=== PATIENT | male | born 1955 | race Caucasian/White ===

== ENCOUNTER 2016-09-29 08:43 | Emergency (ER) | payer OTHER ==
[2016-09-29 09:06] VITALS: BP 140/65
[2016-09-29] MEDS ORDERED: OXYCODONE-ACETAMINOPHEN 5-325 MG TABLET PO ONE (09:27)
[2016-09-29] MEDS ORDERED: PROMETHAZINE HCL 25 MG TABLET PO ONE (09:27)
--- NOTE | 2016-09-29 09:30 | ER Document Report ---
ED General - General Chief Complaint: Possible Kidney Stone Stated Complaint: FLANK PAIN Mode of Arrival: Ambulatory Information source: Patient Notes: 61-year-old male history of 3 previous kidney stones was diagnosed with a kidney stone in 2 weeks prior by x-ray at an urgent care presents with complaints of continued right flank pain associated with nausea. Patient denies any fevers or chills patient denies any vomiting. Patient denies any burning on urination, he has been on the proximal and Flomax with no improvement of symptoms Patient does not have a urologist here TRAVEL OUTSIDE OF THE [place] IN LAST 30 DAYS: No - HPI Onset: Other - 2 week duration Onset/Duration: Intermittent Quality of pain: Dull Severity: Mild Pain Level: 1 Associated symptoms: Nausea Exacerbated by: Denies Relieved by: Denies Similar symptoms previously: Yes Recently seen / treated by doctor: Yes Past Medical History - Social History Smoking Status: Never Smoker Cigarette use (# per day): No Chew tobacco use (# tins/day): No Smoking Education Provided: No Family History: Reviewed & Not Pertinent Patient has suicidal ideation: No Patient has homicidal ideation: No Renal/ Medical History: Denies: Hx Peritoneal Dialysis Review of Systems - Review of Systems Notes: REVIEW OF SYSTEMS: CONSTITUTIONAL : Denies fever, chills, or sweats. Denies recent illness. EENT: Denies eye, ear, throat, or mouth pain or symptoms. Denies nasal or sinus congestion or discharge. Denies throat, tongue, or mouth swelling or difficulty swallowing. CARDIOVASCULAR: Denies chest pain. Denies palpitations or racing or irregular heart beat. Denies ankle edema. RESPIRATORY: Denies cough, cold, or chest congestion. Denies shortness of breath, difficulty breathing, or wheezing. GASTROINTESTINAL: Admits to nausea right flank pain GENITOURINARY: Denies difficulty urinating, painful urination, burning, frequency, blood in urine, or discharge. MUSCULOSKELETAL: Denies back or neck pain or stiffness. Denies joint pain or swelling. SKIN: Denies rash, lesions or sores. HEMATOLOGIC : Denies easy bruising or bleeding. LYMPHATIC: Denies swollen, enlarged glands. NEUROLOGICAL: Denies confusion or altered mental status. Denies passing out or loss of consciousness. Denies dizziness or lightheadedness. Denies headache. Denies weakness or paralysis or loss of use of either side. Denies problems with gait or speech. Denies sensory loss, numbness, or tingling. Denies seizures. PSYCHIATRIC: Denies anxiety or stress. Denies depression, suicidal ideation, or homicidal ideation. ALL OTHER SYSTEMS REVIEWED AND NEGATIVE. Dictation was performed using [employer] voice recognition software PHYSICAL EXAMINATION: GENERAL: Well-appearing, well-nourished and in no acute distress. HEAD: Atraumatic, normocephalic. EYES: Pupils equal round and reactive to light, extraocular movements intact, sclera anicteric, conjunctiva are normal. ENT: Nares patent, oropharynx clear without exudates. Moist mucous membranes. NECK: Normal range of motion, supple without lymphadenopathy LUNGS: Breath sounds clear to auscultation bilaterally and equal. No wheezes rales or rhonchi. HEART: Regular rate and rhythm without murmurs ABDOMEN: Soft, nontender, nondistended abdomen. No guarding, no rebound. No masses appreciated. Musculoskeletal: Normal range of motion, no pitting or edema. No cyanosis. NEUROLOGICAL: Cranial nerves grossly intact. Normal speech, normal gait. Normal sensory, motor exams PSYCH: Normal mood, normal affect. SKIN: Warm, Dry, normal turgor, no rashes or lesions noted. Physical Exam - Vital signs Vitals: Temp Pulse Resp BP Pulse Ox 97.4 F 82 16 140/65 H 95 09/29/16 09:05 09/29/16 09:05 09/29/16 09:05 09/29/16 09:05 09/29/16 09:05 Course - Re-evaluation Re-evalutation: 09/29/16 09:29 Given history of kidney stone urinalysis to rule out infectious process and a CT has been ordered. Otherwise patient looks well will be given by mouth medication 09/29/16 10:42 CT notes a 5 mm stone in the left lower renal, I believe this is causing the patient's achy pain as his urinalysis is clear, patient will be given urology follow-up for reevaluation. He'll be discharged home on pain control nausea medication and follow-up. After performing a Medical Screening Examination, I estimate there is LOW risk for ACUTE APPENDICITIS, BOWEL OBSTRUCTION, ACUTE CHOLECYSTITIS, PERFORATED DIVERTICULITIS, INCARCERATED HERNIA, PANCREATITIS, or PERFORATED ULCER, thus I consider the discharge disposition reasonable. Also, there is no evidence or peritonitis, sepsis, or toxicity. I have reevaluated this patient multiple times and no significant life threatening changes are noted. The patient and I have discussed the diagnosis and risks, and we agree with discharging home with close follow-up with the understanding that symptoms and presentations can change. We also discussed returning to the Emergency Department immediately if new or worsening symptoms occur. We have discussed the symptoms which are most concerning (e.g., bloody stool, fever, changing or worsening pain, intractable vomiting - standard verbal up date) that necessitate immediate return. - Vital Signs Vital signs: Temp Pulse Resp BP Pulse Ox 97.4 F 82 16 140/65 H 95 09/29/16 09:05 09/29/16 09:05 09/29/16 09:05 09/29/16 09:05 09/29/16 09:05 - Laboratory Laboratory results interpreted by me: 09/29/16 09:31 Urine Glucose (UA) >=500 H - Diagnostic Test Radiology reviewed: Image reviewed, Reports reviewed - 5 mm stone Discharge - Discharge Clinical Impression: Kidney stone on left side Nausea & vomiting Qualifiers: Vomiting type: unspecified Vomiting Intractability: non-intractable Qualified Code(s): R11.2 - Nausea with vomiting, unspecified Condition: Stable Disposition: HOME, SELF-CARE Instructions: Kidney Stone ([facility]) Prescriptions: Oxycodone HCl/Acetaminophen [Percocet 5-325 mg Tablet] 1 - 2 tab PO Q4H PRN #25 tablet PRN Reason: Promethazine HCl [Phenergan 25 mg Tablet] 1 - 2 tab PO Q6H PRN #15 tablet PRN Reason: Tamsulosin HCl [Flomax 0.4 mg Cap.sr] 0.4 mg PO DAILY #20 cap.sr.24h Referrals: MARY LEMA MD [ACTIVE STAFF] - Follow up tomorrow
[2016-09-29 10:14] LABS: APPEARANCE,URINE CLEAR; BILIRUBIN,URINE NEGATIVE (NEGATIVE); GLUCOSE, URINE >=500 mg/dL (NEGATIVE); KETONES,URINE NEGATIVE (NEGATIVE); LEUKOCYTE ESTERASE,URINE NEGATIVE (NEGATIVE); NITRITE,URINE NEGATIVE (NEGATIVE); PROTEIN,URINE NEGATIVE (NEGATIVE); URINE SPECIFIC GRAVITY 1.002; UROBILINOGEN,URINE NEGATIVE mg/dL (<2.0)
== END 2016-09-29 10:50 | disposition home or self-care (01) ==
LOC: ER 08:43
DX: N20.0 Calculus of kidney (principal); R11.2 Nausea with vomiting, unspecified; R10.9 Unspecified abdominal pain; Z87.442 Personal history of urinary calculi
CPT/HCPCS: 76380; 81001; 99284

== ENCOUNTER 2016-10-02 11:06 | Emergency (ER) | payer OTHER ==
--- NOTE | 2016-10-02 12:19 | ER Document Report ---
ED GI/ - General Time seen by provider: 12:08 Mode of Arrival: Ambulatory Information source: Patient, Relative TRAVEL OUTSIDE OF THE [place] IN LAST 30 DAYS: No - HPI Patient complains to provider of: Abdominal pain Onset: Other - see history of present illness note Similar symptoms previously: Yes Recently seen / treated by doctor: Yes - General Chief Complaint: Possible Kidney Stone Stated Complaint: LEFT SIDE FLANK PAIN Notes: Patient is a 61-year-old male presenting emergency department for a kidney stent. Patient states he has an upset stomach from pain medications. patient has tried taking nausea medications with his pain meds without any relief. Patient states that he cannot get an appointment with his follow-up urologist until the . Patient was diagnosed with a 5 mm stone has not passed yet. Patient has no known allergies. (LINDSEY EMANUEL) - Related Data Allergies/Adverse Reactions: No Known Allergies Allergy (Unverified 10/02/16 11:11) Past Medical History - General Information source: Patient - Social History Smoking Status: Unknown if Ever Smoked Family History: None Patient has suicidal ideation: No Patient has homicidal ideation: No Renal/ Medical History: Reports: Hx Kidney Stones Review of Systems - Review of Systems Constitutional: No symptoms reported EENT: No symptoms reported Cardiovascular: No symptoms reported Respiratory: No symptoms reported Gastrointestinal: See HPI, Abdominal pain, Nausea Genitourinary: See HPI Male Genitourinary: No symptoms reported Musculoskeletal: No symptoms reported Skin: No symptoms reported Hematologic/Lymphatic: No symptoms reported Neurological/Psychological: No symptoms reported -: Yes All other systems reviewed and negative Physical Exam - Vital signs Interpretation: Normal - General General appearance: Appears well, Alert In distress: Mild - HEENT Head: Normocephalic, Atraumatic Eyes: Normal Pupils: PERRL Mucous membranes: Moist - Respiratory Respiratory status: No respiratory distress - Cardiovascular Rhythm: Regular - Abdominal Inspection: Normal - Back Back: Normal - Extremities General upper extremity: Normal inspection, Normal ROM, Normal strength General lower extremity: Normal inspection, Normal ROM, Normal strength - Neurological Neuro grossly intact: Yes Cognition: Normal Orientation: AAOx4 [place] Coma Scale Eye Opening: Spontaneous [place] Coma Scale Verbal: Oriented [place] Coma Scale Motor: Obeys Commands [place] Coma Scale Total: 15 Speech: Normal - Psychological Associated symptoms: Normal affect, Normal mood - Skin Skin Temperature: Warm Skin Moisture: Dry Course - Re-evaluation Re-evalutation: 10/02/16 12:22 presents emergency, chief complaint diagnosed a kidney stone 4 days ago was 5 mm no I0 noninfected. He says he can't tolerate the pain medication cousins upsetting his stomach and causing pain and burning despite the Phenergan. He has a follow-up appointment with [facility] urology but it's not until the 15th any can't wait until then. No fevers chills vomiting abdomen is soft no tenderness guarding rebound rigidity. I called over to [facility] urology and they said he could come over be evaluated right now. His can be discharged go directly to their office and discussed reasons for ED return sooner (SUMAYA MATTSON) - Vital Signs Vital signs: Temp Pulse Resp BP Pulse Ox 98 F 70 14 127/87 H 98 10/02/16 13:03 10/02/16 13:03 10/02/16 13:03 10/02/16 13:03 10/02/16 13:03 Discharge - Discharge Clinical Impression: kidney stone Condition: Stable Disposition: HOME, SELF-CARE Additional Instructions: Kidney Stone You are passing or have passed a kidney stone. These stones are usually due to increased calcium or uric acid concentrations in your urine. Stones within the kidney itself are not painful. The pain occurs as the stone leaves the kidney to pass down the long tube, called the ureter, leading to the bladder. If the stone is small, it will usually pass by itself. Most patients can pass the stone at home. You will usually receive medications for pain, nausea or vomiting, and sometimes a medication to assist in passing the kidney stone. However, if the pain is very severe or if vomiting prevents you from taking oral pain medications, you may need to return for further treatment. Drink three or four quarts of fluids per day. You will be given pain medication (if needed) and urine strainers. Strain all your urine to see if the stone passes. If your doctor has asked you to bring the stone in for analysis, return with the stone once it has passed. Return if pain or vomiting become severe, if you develop a high fever, if you are unable to pass your urine, or if other unusual symptoms occur. Go directly to [facility] urology now they will see you. Return for increasing worsening or new symptoms Scribe Attestation: 10/02/16 12:22 I personally performed the services described in the documentation reviewed the documentation recorded by my scribe in my presence and it accurately and completely records my words and actions (SUMAYA MATTSON) Scribe Documentation - Scribe Written by Scriblandon:: Lindsey Emanuel 10/02/16 12:47 acting as scribe for :: Cj
[2016-10-02 13:07] VITALS: BP 127/87
== END 2016-10-02 12:45 | disposition home or self-care (01) ==
LOC: ER 11:06
DX: N20.0 Calculus of kidney (principal); R10.9 Unspecified abdominal pain
CPT/HCPCS: 99283

== ENCOUNTER 2018-05-27 06:51 | Day surgery (SDC) | payer OTHER ==
[~2018-05-27 06:51] MED LIST: KETOROLAC TROMETHAMINE 0.45% 4 DROP/0.4 ML DROPERETTE OS PRN
[2018-05-27] MEDS: CYCLOPENTOLATE 0.2%/PHENYLEPHRINE 1% OPH SOLN 2 ML OS PRN ×3 (07:09→07:36)
[2018-05-27] MEDS: TETRACAINE HCL 0.5% OPH SOLN 4 ML OS PRN ×2 (07:09→07:55)
[2018-05-27] MEDS: BESIFLOXACIN HCL 0.6% OPH SUSP 5 ML BOTTLE OS PRN ×4 (07:09→08:22)
[2018-05-27] MEDS: TROPICAMIDE 1% OPH SOLN 3 ML OS PRN ×3 (07:09→07:36)
[2018-05-27] MEDS ORDERED: LIDOCAINE 1% INJ-PF (10 MG/ML) 30 ML SDV ONE (07:13)
[2018-05-27] MEDS ORDERED: MIDAZOLAM 2 MG/2 ML INJ ONE (07:48)
[2018-05-27] MEDS: CHONDR SU A NA/HYALUR INTRAOC KIT (SURGICARE) ONE ×2 (08:10)
[2018-05-27] MEDS: EPINEPHRINE INJ/PF 1 MG/1 ML AMPULE ONE ×2 (08:10)
[2018-05-27] MEDS ORDERED: FENTANYL CITRATE INJ/PF 100 MCG/2 ML AMPUL ONE (08:11)
--- NOTE | 2018-05-28 23:38 | [facility] DISCHARGE SUMMARY E ---
[facility] Discharge Summary NAME: JM BHATIA AGE: 63Y ADMITTED: 05/27/2018 DISCHARGED: 05/27/2018 A 63-year-old patient who underwent cataract extraction of the left eye. DIAGNOSIS: Cataract left eye. He underwent surgery because he was having trouble seeing road signs, with increased glare from headlights, making it difficult to drive. He should be on a regular diet. No bending at the waist and no heavy lifting. He should use his Besivance, Prolensa, and Durezol at 3:00 p.m. and 8:00 p.m. and see me for a 1-day postop tomorrow. DICTATING PHYSICIAN: DANNY PHELPS M.D. [id number] PHY#: [id number] ID: [id number] JOB#: [id number] ACCT: [id number] cc:DANNY PHELPS M.D. >
--- NOTE | 2018-05-28 23:38 | [facility] OPERATIVE REPORT E ---
[facility] Operative Report NAME: JM BHATIA AGE: 63Y DATE OF SURGERY: 05/27/2018 ROOM: PREOPERATIVE DIAGNOSIS: CATARACT, LEFT EYE. POSTOPERATIVE DIAGNOSIS: CATARACT, LEFT EYE. OPERATION: Cataract extraction with insertion of an IOL of the left eye. SURGEON: DANNY PHELPS M.D. ANESTHESIA: Topical. PROCEDURE: After obtaining appropriate consent, the patient's left eye was prepped and draped in sterile fashion as well as the surgeon in a sterile manner and cataract surgery was started. First a paracentesis blade was used to make a side-port incision. Viscoelastic was used to inflate the anterior chamber. Next a 2.4 mm incision was made with a 2.4 mm blade, clear corneal temporally. A continuous capsulorrhexis was made using a cystotome and Utrata forceps. Following this hydrodissection was carried out to make the lens fully loose and mobile and it was rotated 90 degrees. Following this, a rfadtl-xqk-yvzgisu technique was used to phacoemulsify the lens with a CDE of 5.27. The remaining cortex was removed with irrigation/aspiration. Provisc was instilled into the capsular bag to inflate the bag. A SN60WF, 25.0 diopter lens was placed. The remaining viscoelastic material was removed with irrigation/aspiration. Following this, the incision was found to be watertight. Besivance was instilled into the eye and a protective shield was placed over the eye. The patient returned to the postoperative recovery in stable condition. DICTATING PHYSICIAN: DANNY PHELPS M.D. [id number] PHY#: [id number] ID: [id number] JOB#: [id number] ACCT: [id number] cc:DANNY PHELPS M.D. >
== END 2018-05-27 09:12 | disposition home or self-care (01) ==
LOC: SC 06:51
PROVIDERS: ATTEND Internal Medicine
DX: H25.812 Combined forms of age-related cataract, left eye (principal); H25.811 Combined forms of age-related cataract, right eye; E11.36 Type 2 diabetes mellitus with diabetic cataract; I11.9 Hypertensive heart disease without heart failure; I48.91 Unspecified atrial fibrillation; E11.3291 Type 2 diabetes mellitus with mild nonproliferative diabetic retinopathy without macular edema, right eye; Z79.4 Long term (current) use of insulin
CPT/HCPCS: 82962; 66982; V2632; J2250; J3490 ×3; J0171; J3010; 142

== ENCOUNTER 2018-06-24 08:27 | Day surgery (SDC) | payer OTHER ==
[~2018-06-24 08:27] MED LIST changes: +KETOROLAC TROMETHAMINE 0.45% 4 DROP/0.4 ML DROPERETTE OD PRN; -KETOROLAC TROMETHAMINE 0.45% 4 DROP/0.4 ML DROPERETTE OS PRN; +MIDAZOLAM 2 MG/2 ML INJ ONE
[2018-06-24] MEDS: TROPICAMIDE 1% OPH SOLN 3 ML OD PRN ×3 (09:35→09:55)
[2018-06-24] MEDS: TETRACAINE HCL 0.5% OPH SOLN 4 ML OD PRN ×3 (09:35→10:07)
[2018-06-24] MEDS: CYCLOPENTOLATE 0.2%/PHENYLEPHRINE 1% OPH SOLN 2 ML OD PRN ×3 (09:35→09:55)
[2018-06-24] MEDS: BESIFLOXACIN HCL 0.6% OPH SUSP 5 ML BOTTLE OD PRN ×4 (09:36→10:16)
[2018-06-24] MEDS: LIDOCAINE 1% INJ-PF (10 MG/ML) 30 ML SDV ONE ×2 (10:12→10:16)
[2018-06-24] MEDS: EPINEPHRINE INJ/PF 1 MG/1 ML AMPULE ONE ×2 (10:12→10:16)
[2018-06-24] MEDS: CHONDR SU A NA/HYALUR INTRAOC KIT (SURGICARE) ONE ×2 (10:13→10:16)
[2018-06-24] MEDS ORDERED: MIDAZOLAM 2 MG/2 ML INJ ONE (10:32)
--- NOTE | 2018-06-24 21:58 | [facility] OPERATIVE REPORT E ---
[facility] Operative Report NAME: JM BHATIA AGE: 63Y DATE OF SURGERY: 06/24/2018 ROOM: PREOPERATIVE DIAGNOSIS: CATARACT, RIGHT EYE. POSTOPERATIVE DIAGNOSIS: CATARACT, RIGHT EYE. OPERATION: Cataract extraction with insertion of an IOL of the right eye. SURGEON: DANNY PHELPS M.D. ANESTHESIA: Topical. PROCEDURE: After obtaining appropriate consent, the patient's right eye was prepped and draped in sterile fashion as well as the surgeon in a sterile manner and cataract surgery was started. First a paracentesis blade was used to make a side-port incision. Viscoelastic was used to inflate the anterior chamber. Next a 2.4 mm incision was made with a 2.4 mm blade, clear corneal temporally. A continuous capsulorrhexis was made using a cystotome and Utrata forceps. Following this hydrodissection was carried out to make the lens fully loose and mobile and it was rotated 90 degrees. Following this, a nibbrw-mdl-wfgkxzk technique was used to phacoemulsify the lens with a CDE of 11.24. The remaining cortex was removed with irrigation/aspiration. Provisc was instilled into the capsular bag to inflate the bag. A SN60WF, 24.5 diopter lens was placed. The remaining viscoelastic material was removed with irrigation/aspiration. Following this, the incision was found to be watertight. Besivance was instilled into the eye and a protective shield was placed over the eye. The patient returned to the postoperative recovery in stable condition. DICTATING PHYSICIAN: DANNY PHELPS M.D. [id number] PHY#: [id number] ID: [id number] JOB#: [id number] ACCT: [id number] cc:DANNY PHELPS M.D. >
--- NOTE | 2018-06-24 22:02 | [facility] DISCHARGE SUMMARY E ---
[facility] Discharge Summary NAME: JM BHATIA AGE: 63Y ADMITTED: 06/24/2018 DISCHARGED: 06/24/2018 HOSPITAL COURSE: This is a 63-year-old patient who underwent cataract extraction of the right eye. DIAGNOSIS: CATARACT, RIGHT EYE. He underwent surgery because he was having difficulty seeing words on the television. DISCHARGE INSTRUCTIONS: He should be on a regular diet. No bending at his waist, no heavy lifting. He should use his Besivance, PROLENSA, and Durezol at 3 p.m. and 8 p.m. and sleep with a rigid shield. I will see him for his 1 day postoperative tomorrow. DICTATING PHYSICIAN: DANNY PHELPS M.D. [id number] PHY#: [id number] ID: [id number] JOB#: [id number] ACCT: [id number] cc:DANNY PHELPS M.D. >
== END 2018-06-24 11:08 | disposition home or self-care (01) ==
LOC: SC 08:27
PROVIDERS: ATTEND Internal Medicine
DX: H25.811 Combined forms of age-related cataract, right eye (principal); Z96.1 Presence of intraocular lens; I10 Essential (primary) hypertension; I48.91 Unspecified atrial fibrillation; E11.9 Type 2 diabetes mellitus without complications; G47.30 Sleep apnea, unspecified; Z79.899 Other long term (current) drug therapy
CPT/HCPCS: 66984; 82962; V2632; J2250; J3490 ×3; J0171; 142